=== PATIENT | female | born 1975 | race Caucasian/White ===

== ENCOUNTER 2017-07-07 09:11 | Inpatient (IN) | payer MEDICAID ==
[~2017-07-07 09:11] MED LIST: EPHEDrine SULFATE 50 MG/5 ML SYG
[2017-07-07] MEDS ORDERED: MISOPROSTOL 200 MCG TAB PR ×2 (09:30→17:00)
[2017-07-07] MEDS ORDERED: OXYTOCIN 30 UNITS/LR 500 ML IV ×3 (09:30→17:00)
[2017-07-07] MEDS ORDERED: CARBOPROST 250 MCG INJ IM ×2 (09:30→17:00)
[2017-07-07] MEDS ORDERED: CEFAZOLIN 2 GM/50 ML (PMX) 50 ML IVPB (09:30)
[2017-07-07] MEDS ORDERED: METHYLERGONOVINE 0.2 MG INJ IM ×2 (09:30→17:00)
[2017-07-07] MEDS: LACTATED RINGER'S 1,000 ML IV ×2 (10:00→11:30)
[2017-07-07 10:19] LABS: ADD MAN DIFF? NO
[2017-07-07 10:24] LABS: WHITE BLOOD COUNT 9.6 10^3/ul (4.8-10.8)
[2017-07-07 10:24] LABS: BASOPHILS % 0.4 % (0.0-2.0); EOSINOPHILS # 0.3 10^3/ul (0.0-0.5); EOSINOPHILS % 2.6 % (0.0-7.0); HEMATOCRIT 37.4 % (37.0-47.0); HEMOGLOBIN 12.7 g/dl (12.0-16.0); LYMPHOCYTES # 1.2 10^3/ul (0.8-2.9); MEAN CORPUSCULAR HEMOGLOBIN 31.2 pg (29.0-33.0); MEAN CORPUSCULAR VOLUME 91.9 fl (82.0-101.0); MEAN PLATELET VOLUME 10.8 fl (7.4-10.4); MONOCYTES % 9.9 % (0.0-11.0); NEUTROPHIL # 7.1 10^3/ul (1.6-7.5); NEUTROPHILS % 73.8 % (39.0-77.0); PLATELET COUNT 208 10^3/UL (140-415); RED BLOOD COUNT 4.07 10^6/ul (4.20-5.40); RED CELL DISTRIBUTION WIDTH 14.1 % (11.5-14.5)
[2017-07-07 10:41] LABS: PROTIME 12.2 Sec (11.9-14.9)
[2017-07-07 10:42] LABS: PARTIAL THROMBOPLASTIN TIME 27.1 Sec (25.0-35.0)
[2017-07-07] MEDS ORDERED: FENTAnyl 50 MCG/ML VIAL (13:13)
[2017-07-07] MEDS ORDERED: morphine SULFATE/PF (10 MG/10 ML) INJ (13:13)
[2017-07-07 13:28] LABS: HEPATITIS B SURFACE ANTIGEN NEGATIVE (NEGATIVE)
[2017-07-07] MEDS ORDERED: PHENYLephrine (100 MCG/ML) 5ML SYG ×3 (13:28→14:16)
[2017-07-07] MEDS: CEFAZOLIN 1 GM/50 ML (PMX) 50 ML IVPB ×2 (13:30→22:19)
[2017-07-07] MEDS ORDERED: ONDANSETRON 4 MG INJ (13:37)
[2017-07-07] MEDS ORDERED: DEXAMETHASONE 4 MG/ML 1 ML INJ (13:37)
[2017-07-07] MEDS ORDERED: PROPOFOL 20 ML (13:40)
[2017-07-07] MEDS ORDERED: ZOLPIDEM 5 MG TAB PO (15:30)
[2017-07-07] MEDS ORDERED: HYDROmorphONE 0.5 MG/0.5 ML SYG IV ×2 (15:30)
[2017-07-07] MEDS ORDERED: NALOXONE (0.4 MG/ML) INJ IV (15:30)
[2017-07-07] MEDS ORDERED: ONDANSETRON 4 MG INJ IV (15:30)
[2017-07-07] MEDS ORDERED: HYDROCODONE/APAP (5/325) TAB PO (17:00)
[2017-07-07] MEDS ORDERED: LANOLIN 7 GM TUBE TOP (17:00)
[2017-07-07] MEDS ORDERED: OXYCODONE/ACETAMINOPHEN (5/325) TAB PO ×2 (17:00)
[2017-07-07 17:03] LABS: RAPID PLASMA REAGIN NONREACTIVE (NR)
[2017-07-07] MEDS: OXYTOCIN 30 UNITS/LR 500 ML IV ×2 (18:03→22:18)
[2017-07-08] MEDS: OXYTOCIN 30 UNITS/LR 500 ML IV ×3 (04:18→19:32)
[2017-07-08] MEDS: KETOROLAC 30 MG INJ IV ×2 (04:19→12:22)
[2017-07-08 09:03] LABS: ADD MAN DIFF? NO
[2017-07-08 09:07] LABS: BASOPHILS % 0.2 % (0.0-2.0); EOSINOPHILS # 0.1 10^3/ul (0.0-0.5); HEMATOCRIT 33.1 % (37.0-47.0); HEMOGLOBIN 11.4 g/dl (12.0-16.0); LYMPHOCYTES # 1.5 10^3/ul (0.8-2.9); LYMPHOCYTES % 11.2 % (15.0-51.0); MEAN CORPUSCULAR HEMOGLOBIN 31.8 pg (29.0-33.0); MEAN CORPUSCULAR HGB CONC 34.4 g/dl (32.0-37.0); MEAN CORPUSCULAR VOLUME 92.5 fl (82.0-101.0); MEAN PLATELET VOLUME 10.8 fl (7.4-10.4); MONOCYTE # 1.4 10^3/ul (0.3-0.9); MONOCYTES % 10.4 % (0.0-11.0); NEUTROPHILS % 76.5 % (39.0-77.0); PLATELET COUNT 170 10^3/UL (140-415); RED BLOOD COUNT 3.58 10^6/ul (4.20-5.40); RED CELL DISTRIBUTION WIDTH 13.7 % (11.5-14.5)
[2017-07-08] MEDS: SENNA/DOCUSATE NA (8.6MG/50MG) TAB PO ×2 (11:02→20:35)
[2017-07-08] MEDS: IBUPROFEN 600 MG TAB PO (18:10)
[2017-07-08] MEDS: HYDROCODONE/APAP (5/325) TAB PO (20:35)
[2017-07-09] MEDS: HYDROCODONE/APAP (5/325) TAB PO (02:10)
[2017-07-09] MEDS: IBUPROFEN 600 MG TAB PO ×5 (06:02→23:40)
[2017-07-09] MEDS: SENNA/DOCUSATE NA (8.6MG/50MG) TAB PO ×2 (09:00→21:00)
[2017-07-09] MEDS: INFLUENZA VIRUS VACCINE 0.5 ML SYG IM* (10:35)
[2017-07-09] MEDS: NA PHOSPHATE/BIPHOS 133 ML ENEMA PR (20:10)
[2017-07-10] MEDS: IBUPROFEN 600 MG TAB PO ×2 (05:52→12:27)
[2017-07-10] MEDS: SENNA/DOCUSATE NA (8.6MG/50MG) TAB PO (09:42)
[2017-07-10] MEDS: DIPHTH/TET/ACEL PERTUSS (ADULT) 0.5 ML VIAL IM* (09:48)
== END 2017-07-10 14:40 | disposition home or self-care (01) | DRG 766 ==
LOC: L-D 09:11 → PP1 17:46
PROVIDERS: Obstetrics & Gynecology
PROC: 10D00Z1 Extraction of Products of Conception, Low, Open Approach (ICD-10-PCS; principal; 2017-07-07 12:30)
PROC: 0UL70ZZ Occlusion of Bilateral Fallopian Tubes, Open Approach (ICD-10-PCS; 2017-07-07 12:30)
DX: O14.94 Unspecified pre-eclampsia, complicating childbirth (principal); Z30.2 Encounter for sterilization; O34.211 Maternal care for low transverse scar from previous cesarean delivery; Z37.0 Single live birth; Z3A.39 39 weeks gestation of pregnancy
CPT/HCPCS: 85025; 85610; 85730; 86592; 86850; 86900; 86901; 87340; 88302; 94760; 99464

== ENCOUNTER 2017-07-14 13:55 | Emergency (ER) | payer MEDICAID | END 2017-07-14 17:38 | disposition home or self-care (01) | LOC: FTE 13:55 | DX: L76.34 Postprocedural seroma of skin and subcutaneous tissue following other procedure (principal) | CPT/HCPCS: 99283; Z7502 ==